=== PATIENT | female | born 1995 | race Caucasian/White ===

== ENCOUNTER 2020-05-08 07:50 | Outpatient (CLI) | payer OTHER, SELFPAY ==
--- NOTE | 2020-05-08 08:01 | US_ITS ---
WS: [id number] EARLY OBSTETRICAL ULTRASOUND (<14 WEEKS). HISTORY: DATING, SUPERVISION NORMAL COMPARISON: None available. Single intrauterine gestational sac is identified. Cardiac activity at 167 BPM. [place]-rump length mounika sures 4.3 cm which corresponds to a gestation of 11w1d. Normal-appearing yolk sac and amnion demonstr ated. Tinysubchorionic hemorrhage.Subchorionic hemorrhage along the posterior gestational sac measure s 6 x 10 x 6 mm. Tiny amount of free fluid in the cul-de-sac. Normal size ovaries with no mass. US/US OB <= 14 weeks fetus [id number] IMPRESSION: 1. Single intrauterine gestation of 11 weeks 1 day with an EDC of 11/26/2020. 2. Tiny subchorionic hemorrhage.
== END 2020-05-08 07:51 | disposition home or self-care (01) ==
PROVIDERS: Visit Provider Family Medicine
DX: Z36.87 Encounter for antenatal screening for uncertain dates (principal); Z3A.11 11 weeks gestation of pregnancy
CPT/HCPCS: 76801

== ENCOUNTER 2020-06-28 14:48 | Outpatient (CLI) | payer OTHER, SELFPAY ==
--- NOTE | 2020-06-28 14:56 | US_ITS ---
WS: [id number] ULTRASOUND OB COMPLETE TECHNIQUE: Complete ultrasound. CLINICAL INFORMATION: NORMAL SUPERVISION ,MULTIPAROUS COMPARISON: Ultrasound May 08, 2020 FINDINGS: Cervix 4.6 cm Single interuterine gestation is identified with breech presentation. Placenta is posterior. Placenta grade 0. Normal amniotic fluid volume. cardiac activity: 150 BPM. AGA: 18w5d ТАТЬЯНА by ultrasound: 11/24/2020 Estimated weight: 257 g BDP: 4.2 cm = 18w4d HC: 15.7 cm = 18w4d AC: 13.3 cm = 18w6d FEMUR LENGTH: 2.9 cm = 18w5d Anatomic survey: Anatomic survey is normal. Normal stomach. Kidneys and bladder are normal. Normal 3 vessel cord. Norm al 3 vessel cord insertion. Normal 4 chamber heart. Normal spine. Intracranial contents are normal. N ormal posterior fossa and cisterna magna. US/US OB >= 14 weeks fetus [id number] IMPRESSION: 1. Single intrauterine with visualized cardiac activity. AGA 18w5d w ith ТАТЬЯНА 11/24/2020. 2. Placenta is posterior No evidence of abruption or previa. presentatio n is breech. 3. anatomic survey is normal. 4. Normal amniotic fluid volume.
== END 2020-06-28 14:49 | disposition home or self-care (01) ==
LOC: RAD 14:53
PROVIDERS: PCP Registered Nurse; Visit Provider Family Medicine
DX: Z34.82 Encounter for supervision of other normal pregnancy, second trimester (principal); Z3A.18 18 weeks gestation of pregnancy
CPT/HCPCS: 76805

== ENCOUNTER 2020-10-13 08:12 | Outpatient (CLI) | payer OTHER, SELFPAY ==
[2020-10-13 08:15] VITALS: BMI 31.1
[2020-10-13 08:34] VITALS: BP 130/71; PULSE 109; TEMP 36.9
[2020-10-13 08:48] VITALS: RESP 17
[2020-10-13 09:00] VITALS: RESP 16
[2020-10-13 09:34] LABS: Add Urine Culture? No; Bacteria Urine TRACE /hpf; Bilirubin Urine Neg (Negative); Blood Urine Neg (Negative); Glucose Urine UA Norm (Normal); Ketones Urine Negative (Negative); Leukocyte Esterase Urine Negative (Negative); Nitrate Urine Negative (Negative); Protein Urine Neg (Negative); Specific Gravity, Urine 1.015 (1.005-1.030); Squamous Epithelial Cell Urine 0-4 /hpf (0-5); Urine Appearance Clear (CLEAR); Urine Color Yellow (Yellow); Urobilinogen Urine Norm (Negative); WBC Urine 0-4 /hpf (0-5); pH Urine 6 (5-7)
== END 2020-10-13 09:10 | disposition home or self-care (01) ==
LOC: OPOB 08:16 → OBGYN 08:17
PROVIDERS: PCP Registered Nurse; Visit Provider Family Medicine
DX: O26.899 Other specified pregnancy related conditions, unspecified trimester (principal); Z3A.00 Weeks of gestation of pregnancy not specified; R30.0 Dysuria
CPT/HCPCS: 59025; 81001; 87086; 99211

== ENCOUNTER 2020-11-17 10:36 | Outpatient (CLI) | payer OTHER, SELFPAY ==
[2020-11-17] VITALS (7 sets, daily range): BP systolic 116–148; BP diastolic 70–86; PULSE 102–125; RESP 16; TEMP 35.6–36; BMI 32.1
== END 2020-11-17 13:41 | disposition home or self-care (01) ==
LOC: OPOB 10:40 → OBGYN 10:41
PROVIDERS: PCP Registered Nurse; Visit Provider Family Medicine
DX: O26.899 Other specified pregnancy related conditions, unspecified trimester (principal); Z3A.00 Weeks of gestation of pregnancy not specified; R10.9 Unspecified abdominal pain
CPT/HCPCS: 59025; 99211

== ENCOUNTER 2020-11-21 13:15 | Inpatient (IN) | payer OTHER, SELFPAY ==
[2020-11-21] VITALS (48 sets, daily range): BP systolic 89–149; BP diastolic 51–87; PULSE 69–118; RESP 17; TEMP 36.3; O2SAT 94–99; BMI 32.5
[2020-11-21 14:02] LABS: Basophils % 0.1 %; Eosinophils % 0.3 %; Hematocrit 34.7 % (37.0-47.0); Lymphocytes # 1.9 10^3/uL (0.8-4.8); Lymphocytes % 16.7 %; Mean Corpuscular HGB Conc 31.7 g/dL (30.0-36.0); Mean Corpuscular Hemoglobin 26.8 pg (28.0-34.0); Mean Corpuscular Volume 84.4 fL (81-99); Mean Platelet Volume 12.4 fL (7.4-10.4); Monocytes % 8.5 %; Neutrophils # 8.39 10^3/uL (1.8-7.7); Neutrophils % 73.8 %; Nucleated Red Blood Cells % 0 %; Platelet Count 211 10^3/cmm (130-400); Red Blood Count 4.11 10^6/uL (4.1-5.3); Red Cell Distribution Width 13.4 % (12.1-15.1); White Blood Count 11.4 10^3/uL (4.0-10.0)
[2020-11-21 14:20] LABS: Alanine Aminotransferase < 5 U/L (0-33); Albumin Level 3.6 g/dL (3.5-5.2); Alkaline Phosphatase 165 IU/L (35-105); Anion Gap 16.7 (5-19); Aspartate Amino Transferase 20 U/L (0-32); Blood Urea Nitrogen 5 mg/dL (6-20); Calcium 9.1 mg/dL (8.5-10.5); Carbon Dioxide 21 mmol/L (22-29); Chloride 100 mmol/L (98-107); Globulin 2.6 g/dL (1.3-4.6); Glomerular Filtration Rate 197.8 mL/min (90-130); Glucose 104 mg/dL (65-115); Osmolality Calculated 276 mOsm/kg (285-295); Potassium 3.7 mmol/L (3.5-5.1); Sodium 134 mmol/L (136-145); Total Bilirubin 0.2 mg/dL (0.15-1.2); Total Protein 6.2 g/dL (6.6-8.7); Uric Acid 4.3 mg/dL (2.4-5.7)
[2020-11-21] MEDS: dextrose 5%-lactated ringers 1,000 ML 125 ML IV (15:13)
[2020-11-21] MEDS: oxytocin 30 UNIT/500 ML BAG IV (15:13)
--- NOTE | 2020-11-21 17:11 | P.HP_ITS ---
Providers/Chief Complaint Primary Care Provider: ILIR Rojas Chief Complaint: INDUCTION History of Present Illness Noah Staley is a 25 year old G2, P1 at 38.6 weeks gestation by LMP consistent with 11-week ultrasound. Her is complicated by UTI in first trimester, Covid positive on 07/03/2020, anemia, gestational hypertension. Patient presented to my office for a follow-up appointment and was found to have elevated blood pressure. Her blood pressures have been elevated off and on in the 140s and she has been having daily headaches for the last 3 days. Tylenol does not seem to be helping them. We discussed the risks and benefits of proceeding with induction of labor to prevent the gestational hypertension for worsening and she agreed to proceed with induction of labor. Currently the patient feels well overall. Her headache is starting to improve. She denies any chest pains, shortness of breath, flashes of light, vaginal bleeding, leakage of fluid, dysuria, nausea, vomiting, diarrhea, constipation. Medications/Allergies Home Medications Medication Instructions Recorded Confirmed Last Taken Type gwqtyqpj-lqo-St-FA 1 tab PO DAILY 10/13/20 11/17/20 11/16/20 History [] iron 325 mg PO DAILY 11/17/20 11/17/20 11/16/20 History Allergies Allergy/AdvReac Type Severity Reaction Status Date / Time No Known Allergies Allergy Verified 11/17/20 10:47 PFSH Acute PFSH: Surgical History (Updated 11/21/20 @ 17:13 by Brenden Grover MD) Hx of breast implants, bilateral Vitals/I&O/Wt Last Vital Signs Pulse 90 11/21/20 17:02 BP 125/76 11/21/20 17:02 11/21/20 11/21/20 11/21/20 06:59 14:59 22:59 Intake Total 7.917 / 7.917 Balance 7.917 / 7.917 Weight last 48 hrs Weight 208 lb Physical Exam Narrative: EXAM NARRATIVE: General: Alert and oriented x3 Eyes: Pupils equal round and reactive to light and accommodation Mouth: Mucous membranes moist, pharynx non-erythematous Cardiac: Regular rate and rhythm without murmurs Lungs: Clear to auscultation bilaterally without wheezes, crackles or rhonchi Abdomen: Soft, non-tender, fundus consistent with gestational age Extremities: Trace edema in the bilateral lower extremities Data : 11/21/20 13:40 11/21/20 13:40 A&P Additional A&P Information The patient is currently feeling well. Her blood pressures are in the 130 systolic currently. We are doing a 24 urine protein to further evaluate for preeclampsia. CBC, CMP and uric acid did not show concerning findings other than mild anemia. The patient has been started on IV Pitocin for induction of labor as she was 3 cm dilated upon presentation. She is currently diony every 2 to 4 minutes. heart tones are showing a category 1 tracing. GBS is negative. Covid is pending. We will proceed with routine induction of labor. All questions were answered. Attestations Medical Necessity Statement*: The patient will be here for greater than 2 midnights due to routine intrapartum and management of labor and delivery. Coding Level of Care Code Acute Engineer [employer] for Karmen Benitez
[2020-11-21] MEDS: lactated ringers 1,000 ML 999 ML IV ×2 (18:18→19:41)
--- NOTE | 2020-11-21 19:47 | ANES.PREANE2 ---
Pre-Anesthetic Assessment Pre-Anesthetic Assessment: Height/Weight: Height 1.7 m Weight 94.347 kg Pulse BP Pulse Ox 78 106/59 94 11/21/20 19:42 11/21/20 19:42 11/21/20 19:42 Preop Diagnosis: IUP Was Beta Araceli taken within 24 hours: N/A Was Clonidine taken within 24 hours: N/A Social: Social History: No alcohol and No tobacco Exam: Pre-Anes Outpt Exam: alert, oriented x 3, clear to auscultation bilaterally and regular rate & rhythm Airway: Submandibular: WNL Cervical ROM: WNL MP: 2 Dentition: Full History/ROS: No significant history except as noted Anesthetic Plan: ASA status: 2 Anesthesia: Regional (specify below) (Labor epidural) Risk of > 500 ml blood loss (7ml/kg in children): No Meds/Allergies Current Medications: Current Medications Generic Name Dose Route Start Last Admin Trade Name Freq PRN Reason Stop Dose Admin Oxytocin 30 unit in 500 ml s @ 1 mls/hr 11/21/20 14:00 11/21/20 18:19 Pitocin IV 20 milliunit/min .Q24H POWER 20 mls/hr Titration Protocol 1 MILLIUNIT/MIN Dextrose/Lactated Ringer's 1,000 mls @ 125 m ls/hr 11/21/20 14:00 11/21/20 19:19 Dextrose 5%-Lact ated Ringers IV 125 mls/hr .Q8H POWER Infusion Ropivacaine 200 mg in 100 mls @ 13 mls/hr 11/21/20 18:00 11/21/20 19:31 Naropin Premix EPIDURAL 13 mls/hr .Q7H42M POWER Administration Lactated Ringer's 1,000 mls @ 999 m ls/hr 11/21/20 17:59 11/21/20 19:41 Lactated Ringers IV 999 mls/hr .Q1H1M PRN Administration See label comment s PFSH Anesthesia PFSH: Surgical History (Updated 11/21/20 @ 17:13 by Brenden Grover MD) Hx of breast implants, bilateral Female Reproductive History: : 2 Data Anesthesia CBC & Chem 7: 11/21/20 13:40 11/21/20 13:40 Other Labs: Laboratory Results - last 48 hr 11/21/20 11/21/20 13:40 13:40 WBC 11.4 H RBC 4.11 Hgb 11.0 L Hct 34.7 L MCV 84.4 MCH 26.8 L MCHC 31.7 RDW 13.4 Plt Count 211 MPV 12.4 H Neut % (Auto) 73.8 Lymph % (Auto) 16.7 [place] % (Auto) 8.5 Eos % (Auto) 0.3 Baso % (Auto) 0.1 Neut # (Auto) 8.39 H Lymph # (Auto) 1.9 [place] # (Auto) 1.0 H Eos # (Auto) 0.0 Baso # (Auto) 0.0 Nucleated RBC % (auto) 0 Nucleated RBCs # 0.0 Sodium 134 L Potassium 3.7 Chloride 100 Carbon Dioxide 21 L Anion Gap 16.7 BUN 5 L Creatinine 0.4 L GFR Calculation 197.8 H Glucose 104 Calculated Osmolality 276 L Uric Acid 4.3 Calcium 9.1 Total Bilirubin 0.2 AST 20 ALT < 5 Alkaline Phosphatase 165 H Total Protein 6.2 L Albumin 3.6 Globulin 2.6 Cardiac Studies: No Data to Display
--- NOTE | 2020-11-21 19:47 | ANES.PROC ---
Anesthesia Procedures Procedure/Date: 11/21/20 Epidural: Time Out Performed: Yes Consents Signed: Procedure Consent Consent: requested by attending/covering physician, from patient, risks and benefits reviewed and patient agrees to proceed Lumbar Level: L3-L4 Epidural position: sitting Epidural procedure: sterile prep of area, 1% lidocaine to numb the area, 18 g needle, test dose given, 1.5% xylocaine 1:200k epi, placed PCEA, no systemic response, sterile dressing applied and 0.2% Ropiavacaine @ mls/hr (13) Additional Comments: VAIBHAV at 5cm, cath at 10cm, LLE paresthesia with passage of cath. Bolused 5mls 2% lido PF.
[2020-11-22] VITALS (36 sets, daily range): BP systolic 97–169; BP diastolic 53–121; PULSE 65–127; RESP 15; TEMP 36.1–37
[2020-11-22] MEDS: dextrose 5%-lactated ringers 1,000 ML 125 ML IV (00:44)
--- NOTE | 2020-11-22 02:03 | PM.DELIVERY ---
Delivery Note: Date of delivery: November 22, 2020 Pre-delivery diagnoses: 1. Intrauterine at 39.0 weeks gestation 2. Gestational hypertension without severe features 3. Anemia 4. COVID-19 infection on 07/03/2020 Post-delivery diagnoses: 1. Intrauterine status post spontaneous vaginal delivery at 39.0 weeks gestation 2. Gestational hypertension without severe features 3. Anemia 4. COVID-19 infection on 07/03/2020 5. Delivery of healthy infant female weighing 7 pounds 13 ounces with Apgars of 9 and 9 Procedure: Spontaneous vaginal delivery Op report anesthesia: Epidural Delivering Physician: Brenden Grover MD Estimated blood loss (mL): 125 Findings: 1. Intact placenta with peripheral umbilical cord insertion site 2. Delivery of healthy infant female weighing 7 pounds 13 ounces with Apgars of 9 and 9 Pre-Delivery Course: The patient was admitted to labor and delivery secondary to gestational hypertension without severe features. The patient was beginning to have regular headaches or not clearing with Tylenol. Her blood pressures were in the 140s systolic. For this reason it was felt best to proceed with induction of labor prior to the hypertension worsening. In OB she was found to be 3 cm dilated upon admission and was started on IV Pitocin in the early afternoon on 11/21/2020. Her blood pressures were in the normal range and she did not need treatment per antihypertensive protocol. The patient made steady change and received a laboring epidural. AROM was performed at 2238 on 11/21/2020. The patient had clear fluid. Steady change continued and the patient was complete by 1:26 AM on 11/22/2020. Delivery: Patient began pushing at 1:36 AM on 11/22/2020. The patient pushed well and the delivered in the OA position at 1:40 AM on 11/22/2020. The right shoulder was the anterior shoulder and it delivered with ease. The rest of the delivered without complication. The infant's mouth and nose were bulb suctioned by myself and the was crying immediately after delivery. The infant was placed on the mother's chest where the nurses were waiting to care for her. The infant's cord was clamped by myself after approximately 1 minute and cut by the infant's father. Cord blood sample was obtained. The cord was then drained of blood. Traction was placed on the umbilical cord and uterine massage was done. The placenta delivered without complication at 1:45 AM on 11/22/2020. The placenta was noted to be intact with a peripheral umbilical insertion site. The cervix was inspected and no lacerations were noted. The vaginal wall was inspected and no lacerations were noted. Currently the mother's bleeding is slowing down well. At this time the mother and infant are doing very well. Coding Level of Care Code Acute Credit Analyst for Karmen Benitez
[2020-11-22] MEDS: miSOPROStol 200 mcg Tablet 800 MCG PR (02:26)
[2020-11-22] MEDS: oxytocin 30 UNIT/500 ML BAG 600 UNIT IV (02:39)
--- NOTE | 2020-11-22 02:43 | PC.NURSE ---
Dr. Grover at nurses station, updated on fundus firm with scant bleeding at this time. MD orders for second bag of Pitocin to be ran in at 600ml/hr for the first 200ml's then run the rest of the bag at 60ml/hr.
[2020-11-22] MEDS: ibuprofen 800 mg tablet PO ×3 (10:09→21:17)
[2020-11-22] MEDS: prenatal vitamin Capsule 1 CAP PO (10:09)
[2020-11-22] MEDS: docusate sodium 100 mg Capsule PO (10:09)
[2020-11-22 14:44] LABS: Coronavirus Test Green County Not Detected
[2020-11-22 15:22] LABS: Hematocrit 30.1 % (37.0-47.0); Hemoglobin 9.3 g/dL (11.5-15.3); Mean Corpuscular HGB Conc 30.9 g/dL (30.0-36.0); Mean Corpuscular Hemoglobin 26.4 pg (28.0-34.0); Mean Corpuscular Volume 85.5 fL (81-99); Mean Platelet Volume 12.1 fL (7.4-10.4); Platelet Count 174 10^3/cmm (130-400); Red Blood Count 3.52 10^6/uL (4.1-5.3); Red Cell Distribution Width 13.8 % (12.1-15.1); White Blood Count 13.3 10^3/uL (4.0-10.0)
[2020-11-23 02:07] VITALS: RESP 17
--- NOTE | 2020-11-23 04:44 | PC.NURSE ---
in nursery under radiant warmer for CCHD testing, pulse ox placed on left foot and a reading of 70's-80's % with a good wave form, infant color was pink with no signs of distress. Second pulse ox was placed on right wrist with a matching reading in the 80's %. Second RN, Nciole Chao, to nursery. Infant still with no signs of distress and infant now reading 99-100%. watched for 10 minutes with readings in high 90's. Dr. Grover called at 0300 and notified of pulse ox readings. states that he will come to unit in the morning to assess patient and redo the CCHD in one hour.
[2020-11-23 05:00] VITALS: TEMP 35.9
[2020-11-23 05:01] VITALS: BP 103/62; PULSE 72
--- NOTE | 2020-11-23 08:38 | PM.DCS ---
Discharge Providers Date of Admission: 11/21/20 13:15 Date of Discharge: November 23, 2020 Attending Provider at Admission: Brenden Grover MD Attending Provider at Discharge: Brenden Grover MD Primary Care Provider: ILIR Rojas Diagnoses at Discharge Other Information Additional DC diagnoses/information: 1. Intrauterine status post spontaneous vaginal delivery at 39.0 weeks gestation 2. Gestational hypertension without severe features 3. Anemia 4. COVID-19 infection on 07/03/2020 5. Delivery of healthy female weighing 7 pounds 13 ounces with Apgars of 9 and 9 Reason for Visit Reason for Visit: INDUCTION Hospital Course Hospital Course Pre-Delivery Course: The patient was admitted to labor and delivery secondary to gestational hypertension without severe features. The patient was beginning to have regular headaches or not clearing with Tylenol. Her blood pressures were in the 140s systolic. For this reason it was felt best to proceed with induction of labor prior to the hypertension worsening. In OB she was found to be 3 cm dilated upon admission and was started on IV Pitocin in the early afternoon on 11/21/2020. Her blood pressures were in the normal range and she did not need treatment per antihypertensive protocol. The patient made steady change and received a laboring epidural. AROM was performed at 2238 on 11/21/2020. The patient had clear fluid. Steady change continued and the patient was complete by 1:26 AM on 11/22/2020. Delivery: The patient began pushing at 1:36 AM on 11/22/2020. The patient pushed well and the infant delivered in the OA position at 1:40 AM on 11/22/2020. The right shoulder was the anterior shoulder and it delivered with ease. The rest of the infant delivered without complication. The infant's mouth and nose were bulb suctioned by myself and the infant was crying immediately after delivery. The was placed on the mother's chest where the nurses were waiting to care for her. The 's cord was clamped by myself after approximately 1 minute and cut by the 's father. Cord blood sample was obtained. The cord was then drained of blood. Traction was placed on the umbilical cord and uterine massage was done. The placenta delivered without complication at 1:45 AM on 11/22/2020. The placenta was noted to be intact with a peripheral umbilical insertion site. The cervix was inspected and no lacerations were noted. The vaginal wall was inspected and no lacerations were noted. Post-delivery course: The patient has done very well postartum. She has had little bleeding, her pain is well controlled, she is ambulating, voiding, passing gas and tolerating food by mouth. Routine post-delivery instructions were discussed. All questions answered. The patient is in agreement with discharge home at this time. Physical Exam Narrative: EXAM NARRATIVE: General: Alert and oriented x3 Eyes: Pupils equal round and reactive to light and accommodation Mouth: Mucous membranes moist, pharynx non-erythematous Cardiac: Regular rate and rhythm without murmurs Lungs: Clear to auscultation bilaterally without wheezes, crackles or rhonchi Abdomen: Soft, non-tender, fundus is firm and 2cm below the umbilicus Extremities: Trace edema in the bilateral lower extremities Urinary Catheter Management^: Glynn: Cath Placed During This Visit: yes Reason for Continuing Indwelling Catheter: Required Immobilization for Trauma or Surgery or Anesthesia Urinary Catheter Date of Insertion: 11/21/20 Urinary Catheter Time of Insertion: 20:16 Discharge Data Data Completed and Pending: Labs from last 24 hours 11/22/20 11/21/20 14:45 15:55 WBC 13.3 H RBC 3.52 L Hgb 9.3 L Hct 30.1 L MCV 85.5 MCH 26.4 L MCHC 30.9 RDW 13.8 Plt Count 174 MPV 12.1 H Nasal/Oral COVID-1 9 PCR Not detected Vitals: Last Vital Signs Temp 96.6 F L 11/23/20 05:00 Pulse 72 11/23/20 05:01 Resp 17 11/23/20 02:07 BP 103/62 11/23/20 05:01 Pulse Ox 97 11/21/20 20:15 Discharge Plan Discharge Patient Disposition: Home Condition: Good Prescriptions: New ibuprofen 800 mg Tablet 800 mg PO TID Qty: 60 RF: 0 Continued [id number]-[id number]-Ax-FA 1 mg Tablet 1 tab PO DAILY RF: 0 Changed iron 325 mg (65 mg iron) Tablet 325 mg PO BIDWMEAL Qty: 60 RF: 0 Discharge Orders: Discharge Order (Routine); Ordered 11/23/20 Ordered By: Brenden Grover Referrals: Brenden Grover MD [Physician] - 6 Weeks (Call on wednesday to schedule a 6 week post- appointment.) Discharge Diet: Advance as tolerated Discharge Activity: Increase activity as tolerated Patient Instructions: Vitamins (By mouth), Pre-eclampsia and Eclampsia (DC), Bleeding (DC), OB Discharge Report, OB Food/Drug Interaction Guide, OB Proud Parent Packet, OB Vaginal Deliveries Activity Restrictions/Additional Instructions: Nothing per vagina for 6 weeks. For any concerns prior to your appointment, please call Dr. Grover for a sooner appointment. Discharge Attestations Time Spent in Discharge Care*: greater than 30 min Quality Metrics Clinical Quality Measures During this hospital stay, did patient experience: None Coding Level of Care Code Acute Chg FW DC note
[2020-11-23] MEDS: ibuprofen 800 mg tablet PO (09:04)
[2020-11-23] MEDS: prenatal vitamin Capsule 1 CAP PO (09:04)
[2020-11-23] MEDS: docusate sodium 100 mg Capsule PO (09:05)
[2020-11-23 09:27] VITALS: BP 117/64; PULSE 82; TEMP 35.9
[2020-11-23 09:30] VITALS: RESP 18
[2020-11-23 10:00] VITALS: BP 117/64; PULSE 82; RESP 18; TEMP 35.9
== END 2020-11-23 10:00 | disposition home or self-care (01) | DRG 807 ==
LOC: OPOB 13:19 → OBGYN 11-22 01:52
PROVIDERS: Admitting Provider Family Medicine; PCP Registered Nurse; Visit Provider Family Medicine
DX: O13.4 Gestational [pregnancy-induced] hypertension without significant proteinuria, complicating childbirth (principal); Z37.0 Single live birth; O99.02 Anemia complicating childbirth; D64.9 Anemia, unspecified; Z86.16 Personal history of COVID-19; Z3A.39 39 weeks gestation of pregnancy
CPT/HCPCS: 36415; 51702; 59409; 80053; 84550; 85025; 85027; 87635; J2795

== ENCOUNTER → 2023-10-19 09:46 | Outpatient (BNVA) | payer SELFPAY | PROVIDERS: PCP Registered Nurse; Visit Provider Registered Nurse | DX: N39.0 Urinary tract infection, site not specified (principal) | CPT/HCPCS: 81000 ==

== ENCOUNTER → 2023-10-27 08:10 | Outpatient (BNVA) | payer SELFPAY | PROVIDERS: PCP Registered Nurse; Visit Provider Registered Nurse | DX: N94.9 Unspecified condition associated with female genital organs and menstrual cycle (principal) | CPT/HCPCS: 81000; 87070; 87205 ==

== ENCOUNTER → 2023-10-28 13:03 | Outpatient (BNVA) | payer SELFPAY | PROVIDERS: PCP Registered Nurse; Visit Provider Family Medicine | DX: Z34.90 Encounter for supervision of normal pregnancy, unspecified, unspecified trimester (principal); R30.0 Dysuria; Z3A.00 Weeks of gestation of pregnancy not specified | CPT/HCPCS: 80307; 81000; 81025; 84144; 84443; 84702; 85025; 86592; 86762; 86803; 86850; 86900; 87077; 87086; 87184; 87340; 87491; 87591; 87624; 87806 ==

== ENCOUNTER 2023-11-05 16:02 | Outpatient (CLI) | payer SELFPAY ==
--- NOTE | 2023-11-05 16:15 | USR_ITS ---
PROCEDURE INFORMATION: Exam: US First Trimester, Transabdominal Exam date and time: 11/05/2023 4:13 PM Age: 28 years old Clinical indication: Screening exam; Routine US, uterus; Additional info: Dating US, in the next 1-2 weeks if possible LABS AND CLINICAL REPORTS: Last menstrual period start date: 08/24/2023 Gestational age (Established): 10 w 3 d Estimated due date (Established): 05/30/2024 TECHNIQUE: Imaging protocol: Real-time transabdominal obstetrical ultrasound of the maternal pelvis and a first trimester , less than 14 weeks 0 days, with image documentation. COMPARISON: US OB >= 14 weeks fetus [id number] 06/28/2020 3:23 PM FINDINGS: GESTATION: Gestation: Single live intrauterine gestation is seen. Embryonic/ heart rate: 165 bpm. Extra-embryonic membranes/Placenta: Unremarkable. No subchorionic bleed. Amniotic fluid: Amniotic and extra-amniotic fluid are normal for gestational age. BIOMETRY: Gestational age (AUA): 9 weeks 0 days by crown-rump length. [place]-Rump length: [place]-rump length is 2.24 cm. This is consistent with a gestational age of 9 weeks 0 days. ТАТЬЯНА by ultrasound is 06/09/2024. MATERNAL: Uterus: Sagittal uterine trace 13.9 cm x 5.3 cm x 6.6 cm. Cervix: Unremarkable. Right ovary/adnexa: Right ovary not visualized. No significant adnexal abnormality is seen. Left ovary/adnexa: Left ovary measures 2.3 x 2 x 0.8 cm with small rounded hypoechoic focus 0.9 x 1.4 x 0.7 cm that could represent small corpus luteal cyst. Left ovarian flow is seen. Intraperitoneal space: No free fluid is seen within the cul-de-sac. US/US OB <= 14 weeks fetus [id number] IMPRESSION: 1. Single live intrauterine of 9 weeks 0 days by crown-rump length. 2. Probable small left ovarian corpus luteal cyst. 3. Right ovary not visualized. 4. No significant abnormality otherwise.
== END 2023-11-05 16:03 | disposition home or self-care (01) ==
LOC: RAD 16:02
PROVIDERS: PCP Registered Nurse; Visit Provider Family Medicine
DX: Z34.81 Encounter for supervision of other normal pregnancy, first trimester (principal)
CPT/HCPCS: 76801

== ENCOUNTER 2023-11-18 22:30 | Emergency (ER) | payer SELFPAY ==
[2023-11-18 22:34] VITALS: BP 101/64; PULSE 79; RESP 18; TEMP 36.6; O2SAT 98
--- NOTE | 2023-11-18 22:44 | USR_ITS ---
PROCEDURE INFORMATION: Exam: US First Trimester, Transabdominal and US , Transvaginal Exam date and time: 11/18/2023 11:43 PM Age: 28 years old Clinical indication: complicated by abdominal or pelvic pain; Lower; First trimester (<14 weeks 0 days); Gestational age or lmp: 10w 6d by lmp; ; Patient HX: G3-p2-a0-l2 presenting with bilateral pelvic cramping a spotting x 4 hours. ; Additional info: Vaginal bleeding, cramping LABS AND CLINICAL REPORTS: Choriogonadotropin in serum (Serum HCG): 36384 mIU/mL Last menstrual period start date: 09/02/2023 Gestational age (Established): 10 w 6 d Estimated due date (Established): 06/09/2024 TECHNIQUE: Imaging protocol: Real-time transabdominal obstetrical ultrasound of the maternal pelvis and a first trimester , less than 14 weeks 0 days, with image documentation. Transvaginal imaging was used for better evaluation of the fetus, adnexa, and/or cervix. COMPARISON: US OB <= 14 weeks fetus [id number] 11/05/2023 4:13 PM FINDINGS: Gestation: Intrauterine gestation is visualized. pole is visualized. No yolk sac is visualized. Embryonic/ heart rate: 178 bpm Extra-embryonic membranes/Placenta: Unremarkable. No subchorionic bleed. Amniotic fluid: Amniotic fluid and extra-amniotic fluid is normal for gestational age. BIOMETRY: Gestational age (AUA): 11 w 2 d Estimated due date (AUA): 06/06/2014 [place]-Rump length (CRL): 4.5 mm. EGA (CRL) is 11 w 2 d MATERNAL: Uterus: Uterus measures 11.74 cm x 8.61 cm x 6.86 cm. Cervix: Unremarkable. Right ovary/adnexa: Right ovary measures 2.5 cm x 2.2 cm x 2 cm. Right ovarian volume is 5.7 mL. Left ovary/adnexa: Left ovary measures 3.4 cm x 3 cm x 1.9 cm. Left ovarian volume is 10.2 mL. Intraperitoneal space: No intraperitoneal free fluid. US/US OB <= 14 weeks fetus [id number] IMPRESSION: 1. Single living intrauterine measuring 11 weeks 1 day by today's ultrasound. 2. No evidence placental abru the ption. 3. The ovaries image normally.
[2023-11-18 22:56] LABS: Basophils % 0.2 %; Eosinophils # 0.1 10^3/uL (0.0-0.8); Eosinophils % 1.2 %; Hematocrit 36.8 % (36-47); Lymphocytes # 2.9 10^3/uL (0.8-4.8); Lymphocytes % 25.6 %; Mean Corpuscular HGB Conc 33.7 g/dL (30-55); Mean Corpuscular Hemoglobin 30.4 pg (27-33); Mean Corpuscular Volume 90.2 fl (85-98); Mean Platelet Volume 9.8 fL (7.4-10.4); Monocytes # 0.9 10^3/uL (0.2-0.9); Monocytes % 7.9 %; Neutrophils # 7.27 10^3/uL (1.8-7.7); Neutrophils % 64.8 %; Nucleated Red Blood Cells % 0 %; Platelet Count 240 10^3/cmm (157-399); Red Blood Count 4.08 10^6/uL (3.85-5.65); Red Cell Distribution Width 11.9 % (12.1-15.1); White Blood Count 11.23 10^3/uL (3.29-11.43)
--- NOTE | 2023-11-18 23:07 | ED_ITS ---
HPI - 2 General: Chief complaint: Vaginal Bleeding Stated complaint: 12 weeks preg bleeding, Cramping Time Seen by Provider: 11/18/23 22:39 History of Present Illness: 28-year-old female comes in today for va ginal bleeding. Patient reports that she was in bed sleeping when she felt sudden onset of bleeding. Patient states that she is about 12 weeks . Patient reports some cramping with this. Patient denies any routine medications. Patient has no chronic medical problems. Patient's DIRECTOR OF MEDICAL EDUCATION is Dr. Grover. Patient had a normal ultrasound approximately 2 weeks ago. Patient denies any fever. Patient does have some nausea. 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 Female Reproductive History: Date of last menstrual period: 08/23/23 G ravida: 4 Physical Exam 2 Const: COMMON NORMALS: alert HENMT: COMMON NORMALS: normocephalic HEAD & SCALP: normocephalic Neck/C-Spine: COMMON NORMALS: full ROM Resp: COMMON NORMALS: normal respiratory effort Cardio: COMMON NORMALS: regular rate RATE: regular rate GI: COMMON NORMALS: non-tender Back/Pelvis: COMMON NORMALS: thoracic and lumbar spine normal to inspection Extremity: COMMON NORMALS: normal to inspection Neuro: SENSORIUM/ORIENTATION: Yes alert Skin: COMMON NORMALS: turgor normal GENERAL SKIN EXAM: turgor normal Course 2 Vital Signs: Vital signs: Vital Signs Temperature 97.9 F 11/18/23 22:34 Pulse Rate 78 11/19/23 00:37 Respiratory Rate 16 11/19/23 00:37 Blood Pressure 98/42 11/19/23 00:37 Pulse Oximetry 97 11/19/23 00:37 Oxygen Delivery Me thod Room Air 11/19/23 00:37 MDM - OB/Uterine Contractions Medical Decision Making 28-year-old female comes in today for complaints of vaginal bleeding. Patient reports going through 1 pad. Patient has noticed some clots. Patient appears nontoxic. Patient appears in no pain. Abdomen soft. Bowel sounds are present. Vital signs are normal. Differential diagnosis includes threatened , placenta previa, subchorionic hemorrhage. Ultrasound of the pelvis noted a single live intrauterine around 11 weeks 1 to 2 days. No evidence of placental abruption or subchorionic hemorrhage was noted at this time. Patient's blood count showed no anemia. CMP was unremarkable. Urinalysis had blood in it. Reviewed exam with patient with recommendations for follow-up with Dr. Grover in the morning. Return to ER for worsening symptoms. Patient reported understanding. Lab Data 11/18/23 22:48 11/18/23 22:48 Radiology Impressions Ultrasound 11/18/23 22:44 IMPRESSION: 1. Single living intrauterine measuring 11 weeks 1 day by today's ultrasound. 2. No evidence placental abru the ption. 3. The ovaries image normally. Laboratory Results WBC 11.23 10^3/uL (3.29-11.43) 11/18/23 22:48 RBC 4.08 10^6/uL (3.85-5.65) 11/18/23 22:48 Hgb 12.40 g/dL (11.27-16.99) 11/18/23 22:48 Hct 36.8 % (36-47) 11/18/23 22:48 MCV 90.2 fl (85-98) 11/18/23 22:48 MCH 30.4 pg (27-33) 11/18/23 22:48 MCHC 33.7 g/dL (30-55) 11/18/23 22:48 RDW 11.9 % (12.1-15.1) L 11/18/23 22:48 Plt Count 240 10^3/cmm (157-399) 11/18/23 22:48 MPV 9.8 fL (7.4-10.4) 11/18/23 22:48 Neut % (Auto) 64.8 % 11/18/23 22:48 Lymph % (Auto) 25.6 % 11/18/23 22:48 [place] % (Auto) 7.9 % 11/18/23 22:48 Eos % (Auto) 1.2 % 11/18/23 22:48 Baso % (Auto) 0.2 % 11/18/23 22:48 Neut # (Auto) 7.27 10^3/uL (1.8-7.7) 11/18/23 22:48 Lymph # (Auto) 2.9 10^3/uL (0.8-4.8) 11/18/23 22:48 [place] # (Auto) 0.9 10^3/uL (0.2-0.9) 11/18/23 22:48 Eos # (Auto) 0.1 10^3/uL (0.0-0.8) 11/18/23 22:48 Baso # (Auto) 0.0 10^3/uL (0.0-0.1) 11/18/23 22:48 Nucleated RBC % (auto) 0 % 11/18/23 22:48 Nucleated RBCs # 0.0 /100WBC 11/18/23 22:48 Sodium 134 mmol/L (136-145) L 11/18/23 22:48 Potassium 3.8 mmol/L (3.5-5.1) 11/18/23 22:48 Chloride 101 mmol/L (98-107) 11/18/23 22:48 Carbon Dioxide 25 mmol/L (22-29) 11/18/23 22:48 Anion Gap 11.8 (5-19) 11/18/23 22:48 BUN 8 mg/dL (6-20) 11/18/23 22:48 Creatinine 0.5 mg/dL (0.5-0.9) 11/18/23 22:48 GFR Calculation 149.1 mL/min (90-130) H 11/18/23 22:48 Glucose 116 mg/dL (65-115) H 11/18/23 22:48 Calculated Osmolality 277 mOsm/kg (285-295) L 11/18/23 22:48 Calcium 9.0 mg/dL (8.5-10.5) 11/18/23 22:48 Total Bilirubin 0.2 mg/dL (0.15-1.2) 11/18/23 22:48 AST 14 U/L (0-32) 11/18/23 22:48 ALT 11 U/L (0-33) 11/18/23 22:48 Alkaline Phosphatase 85 U/L (35-105) 11/18/23 22:48 Total Protein 7.0 g/dL (6.6-8.7) 11/18/23 22:48 Albumin 4.1 g/dL (3.5-5.2) 11/18/23 22:48 Globulin 2.9 g/dL (1.3-4.6) 11/18/23 22:48 Ser , Semi-Qnt 35809.00 mIU/mL 11/18/23 22:48 Urine Color Yellow (Yellow) 11/18/23 22:50 Urine Appearance Turbid (CLEAR) A 11/18/23 22:50 Urine pH 7 (5-7) 11/18/23 22:50 Ur Specific [place] 1.015 (1.005-1.030) 11/18/23 22:50 Urine Protein 1+ (Negative) H 11/18/23 22:50 Urine Glucose (UA) Norm (Normal) 11/18/23 22:50 Urine Ketones Negative (Negative) 11/18/23 22:50 Urine Blood 3+ (Negative) H 11/18/23 22:50 Urine Nitrate Negative (Negative) 11/18/23 22:50 Urine Bilirubin Neg (Negative) 11/18/23 22:50 Urine Urobilinogen 1 mg/dL (Negative) H 11/18/23 22:50 Ur Leukocyte Esterase Negative (Negative) 11/18/23 22:50 Urine RBC 80-100 /hpf (0-2) H 11/18/23 22:50 Urine WBC 0-4 /hpf (0-5) H 11/18/23 22:50 Ur Squamous Epith Cells 0-4 /hpf (0-5) H 11/18/23 22:50 Ur Transition Epith Cell 0-4 /hpf 11/18/23 22:50 Amorphous Sediment Not Reportable 11/18/23 22:50 Urine Bacteria 1+ /hpf (NONE) H 11/18/23 22:50 Urine Mucus 3+ /hpf 11/18/23 22:50 All radiology interpretation(s) finalized by discharge Discharge Plan Discharge Patient Disposition: Home Clinical Impression: Vaginal bleeding in Condition: Stable Prescriptions: No Action One-A-Day -1 27 mg iron- 800 mcg-235 mg capsule PO doxylamine succinate 25 mg tablet See Rx Instructions .Route .COMPLEX PRN (Reason: allergy symptoms) Qty: 30 6RF Rx Instructions: Take 1 tab by mouth each evening and 1/2 tab in the am as needed for nausea PRN; pyridoxine (vitamin B6) 100 mg tablet 100 mg PO BID PRN (Reason: Nausea) Qty: 60 3RF nystatin 100,000 unit/gram cream 1 applic topical TID 7 Days Qty: 30 0RF amoxicillin-pot clavulanate 875-125 mg tablet 1 tab PO BID Qty: 14 0RF Discharge Orders: Discharge ED (Routine); Ordered 11/19/23 Ordered By: Jimime Coleman Referrals: Brenden Grover MD [Primary Care Provider] - Discharge Diet: Usual diet Discharge Activity: Increase activity as tolerated Patient Instructions: Threatened Miscarriage (ED) Activity Restrictions/Additional Instructions: Drink plenty water and fluids. Pelvic rest. Follow-up with Dr. Grover's office in the morning. Return to ED for worsening symptoms such as bleeding more than 1 pad an hour. Feeling like you are going to pass out. Or fever greater than 100.4. Coding Level of Care Code ED Hand Spinner for Karmen Benitez
[2023-11-18 23:08] LABS: Add Urine Microscopic? YES; Bilirubin Urine Neg (Negative); Blood Urine 3+ (Negative); Glucose Urine UA Norm (Normal); Ketones Urine Negative (Negative); Leukocyte Esterase Urine Negative (Negative); Nitrate Urine Negative (Negative); Protein Urine 1+ (Negative); RBC Urine 80-100 /hpf (0-2); Specific Gravity, Urine 1.015 (1.005-1.030); Urine Appearance Turbid (CLEAR); Urine Color Yellow (Yellow); Urobilinogen Urine 1 mg/dL (Negative); pH Urine 7 (5-7)
[2023-11-18 23:09] LABS: Add Urine Culture? Yes; Bacteria Urine 1+ /hpf; Mucus Urine 3+ /hpf; Squamous Epithelial Cell Urine 0-4 /hpf (0-5); Transitional Epi Cells Urine 0-4 /hpf; WBC Urine 0-4 /hpf (0-5)
[2023-11-18 23:11] LABS: Alanine Aminotransferase 11 U/L (0-33); Albumin Level 4.1 g/dL (3.5-5.2); Alkaline Phosphatase 85 U/L (35-105); Anion Gap 11.8 (5-19); Aspartate Amino Transferase 14 U/L (0-32); Blood Urea Nitrogen 8 mg/dL (6-20); Carbon Dioxide 25 mmol/L (22-29); Chloride 101 mmol/L (98-107); Creatinine Clr Calc Pharmacy 184.9487; Globulin 2.9 g/dL (1.3-4.6); Glomerular Filtration Rate 149.1 mL/min (90-130); Glucose 116 mg/dL (65-115); Osmolality Calculated 277 mOsm/kg (285-295); Potassium 3.8 mmol/L (3.5-5.1); Sodium 134 mmol/L (136-145); Total Bilirubin 0.2 mg/dL (0.15-1.2)
[2023-11-19 00:37] VITALS: BP 98/42; PULSE 78; RESP 16; O2SAT 97
[2023-11-19 01:28] VITALS: BP 111/64; PULSE 76; RESP 14; O2SAT 97
== END 2023-11-19 01:31 | disposition home or self-care (01) ==
PROVIDERS: Emergency Provider Nurse Practitioner Family; PCP Family Medicine
DX: O20.9 Hemorrhage in early pregnancy, unspecified (principal); Z3A.12 12 weeks gestation of pregnancy
CPT/HCPCS: 76801; 80053; 81001; 84702; 85025; 87086; 99284

== ENCOUNTER → 2023-12-30 14:16 | Outpatient (BNVA) | payer SELFPAY | PROVIDERS: PCP Family Medicine; Visit Provider Family Medicine | DX: Z34.80 Encounter for supervision of other normal pregnancy, unspecified trimester (principal); Z3A.00 Weeks of gestation of pregnancy not specified | CPT/HCPCS: 81511 ==

== ENCOUNTER 2024-01-28 14:13 | Outpatient (CLI) | payer SELFPAY ==
--- NOTE | 2024-01-28 14:15 | USR_ITS ---
PROCEDURE INFORMATION: Exam: US After First Trimester, Transabdominal Exam date and time: 01/28/2024 2:27 PM Age: 29 years old Clinical indication: Screening exam; Routine US, uterus; Additional info: Anatomy US - 7-8 weeks from now TECHNIQUE: Imaging protocol: Real-time transabdominal obstetrical ultrasound of the maternal pelvis and a second or third trimester with image documentation. COMPARISON: US OB <= 14 weeks fetus [id number] 11/18/2023 11:43 PM FINDINGS: Gestation: Intrauterine gestation. heart rate: 157 bpm presentation and position: Vertex lie. Placenta: Anterior placenta. No previa. Amniotic fluid (Qualitative): Amniotic fluid is normal for gestational age. ANATOMY: midline falx: Normal cerebellum: Normal lateral ventricles: Normal cisterna magna: Normal choroid plexus: Normal face: Upper lip is normal heart four-chamber view, heart size and position: Normal heart right ventricular outflow tract: Normal heart left ventricular outflow tract: Normal kidneys: Normal stomach: Normal urinary bladder: Normal spine: Normal Umbilical cord and insertion: Normal upper limbs: Normal lower limbs: Normal external genitalia: Normal BIOMETRY: Gestational age (AUA): 21 weeks 1 day Estimated due date (AUA): 06/08/2024 Biparietal diameter (BPD): 5.17 cm. EGA (BPD) is 21 w 5 d. 84.1 % percentile Head circumference (HC): 18.62 cm. EGA (HC) is 21 w 0 d. 52 % percentile Femur length (FL): 3.55 cm. EGA (FL) is 21 w 2 d. 59.7 % percentile FL/HC: 19.07. (Normal range: 16.26 - 20.29) FL/BPD: 68.67 MATERNAL: Uterus: Unremarkable. Cervix: Cervical length measures 4.4 cm. Right ovary/adnexa: Obscured by lack of adequate acoustic window. Left ovary/adnexa: Obscured by lack of adequate acoustic window. Intraperitoneal space: No intraperitoneal free fluid. US/US OB >= 14 weeks fetus [id number] IMPRESSION: Live intrauterine gestation. Normal structural survey.
== END 2024-01-28 14:14 | disposition home or self-care (01) ==
LOC: RAD 14:13
PROVIDERS: PCP Family Medicine; Visit Provider Family Medicine
DX: Z34.80 Encounter for supervision of other normal pregnancy, unspecified trimester (principal); Z3A.21 21 weeks gestation of pregnancy
CPT/HCPCS: 76805

== ENCOUNTER → 2024-02-25 11:08 | Outpatient (BNVA) | payer SELFPAY | PROVIDERS: PCP Family Medicine; Visit Provider Family Medicine | DX: Z34.80 Encounter for supervision of other normal pregnancy, unspecified trimester (principal); Z3A.00 Weeks of gestation of pregnancy not specified | CPT/HCPCS: 82950 ==

== ENCOUNTER → 2024-04-07 11:47 | Outpatient (BNVA) | payer BC, SELFPAY | PROVIDERS: PCP Family Medicine; Visit Provider Family Medicine | DX: Z34.80 Encounter for supervision of other normal pregnancy, unspecified trimester (principal); Z3A.00 Weeks of gestation of pregnancy not specified; Z51.81 Encounter for therapeutic drug level monitoring | CPT/HCPCS: 85025 ==

== ENCOUNTER → 2024-04-25 13:05 | Outpatient (BNVA) | payer BC, SELFPAY | PROVIDERS: PCP Family Medicine; Visit Provider Family Medicine | DX: O26.899 Other specified pregnancy related conditions, unspecified trimester (principal); R30.0 Dysuria; Z3A.00 Weeks of gestation of pregnancy not specified | CPT/HCPCS: 81000; 87086 ==

== ENCOUNTER → 2024-05-16 12:02 | Outpatient (BNVA) | payer BC, SELFPAY | PROVIDERS: PCP Family Medicine; Visit Provider Family Medicine | DX: Z34.90 Encounter for supervision of normal pregnancy, unspecified, unspecified trimester (principal); Z3A.00 Weeks of gestation of pregnancy not specified | CPT/HCPCS: 87081 ==

== ENCOUNTER 2024-06-02 07:00 | Inpatient (IN) | payer BC, SELFPAY ==
[2024-06-02] VITALS (59 sets, daily range): BP systolic 99–136; BP diastolic 54–83; PULSE 61–143; RESP 16–17; TEMP 36.6–36.7; O2SAT 98–100; BMI 31.8
--- NOTE | 2024-06-02 07:06 | P.HP_ITS ---
Providers/Chief Complaint 2 Primary Care Provider: Brenden Grover MD Chief Complaint: induction of labor History of Present Illness Noah Staley is a 29 year old @ 39.0 wks by 9 wk US inconsistent with LMP. Preg c/b h/o gHTN, 1st TM bleeding, UTI in 1st TM. The patient presented to labor and delivery for a scheduled elective induction of labor. She has been feeling well. She has not had any leaking fluid, vaginal bleeding, nausea, vomiting, diarrhea, constipation, dysuria, cough, chest pains, fever. 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 Female Reproductive History: : 3 Vitals/I&O/Wt Last Vital Signs Pulse 96 06/02/24 06:53 BP 136/68 06/02/24 06:53 O2 Del Method Room Air 06/02/24 06:40 Weight last 48 hrs Weight 203 lb Physical Exam 2 Narrative: General: Alert and oriented x3 Eyes: Pupils equal round and reactive to light and accommodation Mouth: Mucous membranes moist, pharynx non-erythematous Cardiac: Regular rate and rhythm without murmurs Lungs: Clear to auscultation bilaterally without wheezes, crackles or rhonchi Abdomen: Soft, non-tender, fundus consistent with gestational age Extremities: Trace edema in the bilateral lower extremities Data 06/02/24 07:29 A&P Assessment and plan (1) Supervision of normal intrauterine in multigravida: The patient is doing well at this time. heart tones are in the mid 130s with moderate variability good accelerations and a category 1 tracing. She is not diony. She is 4 to 5 cm upon admission. We will start IV Pitocin for induction of labor. She is GBS negative. She may receive a laboring epidural when she desires. Routine intrapartum management discussed. All questions were answered. The patient and her are in agreement with current plan of care. Attestations 2 Medical Necessity Statement*: The patient will be here for greater than 2 midnights due to routine intrapartum and management of labor and delivery. Coding Level of Care Code Acute Code for Chg Fwd Diagnoses Supervision of normal intrauterine in multigravida Z34.80
[2024-06-02 07:44] LABS: Basophils % 0.2 %; Eosinophils % 0.3 %; Lymphocytes # 1.9 10^3/uL (0.8-4.8); Lymphocytes % 15.8 %; Mean Corpuscular HGB Conc 33.1 g/dL (30-55); Mean Corpuscular Hemoglobin 29.6 pg (27-33); Mean Corpuscular Volume 89.4 fl (85-98); Mean Platelet Volume 11.3 fL (7.4-10.4); Monocytes # 0.9 10^3/uL (0.2-0.9); Monocytes % 7.7 %; Neutrophils # 8.94 10^3/uL (1.8-7.7); Neutrophils % 75.2 %; Nucleated Red Blood Cells % 0 %; Platelet Count 187 10^3/cmm (157-399); Red Blood Count 4.36 10^6/uL (3.85-5.65); Red Cell Distribution Width 11.9 % (12.1-15.1); White Blood Count 11.87 10^3/uL (3.29-11.43)
[2024-06-02] MEDS: lactated ringers 1,000 ML 999 ML IV (08:00)
[2024-06-02] MEDS: oxytocin 30 UNIT/500 ML BAG IV (08:30)
[2024-06-02] MEDS: ROPivacaine syringe 100 MG/50 ML SYRINGE 10 MG EPIDURAL ×2 (09:09→14:10)
[2024-06-02] MEDS: dextrose 5%-lactated ringers 1,000 ML 125 ML IV (09:10)
--- NOTE | 2024-06-02 09:13 | P.ANESASSM_ITS ---
Pre-Anesthetic Assessment Height/Weight: Height 1.7 m Weight 92.079 kg Pulse BP Pulse Ox O2 Del Method 93 132/78 99 Room Air 06/02/24 09:09 06/02/24 09:09 06/02/24 09:03 06/02/24 07:44 Epidural Familial anesthetic complications: None Was Beta Araceli taken within 24 hours: N/A Was Clonidine taken within 24 hours: N/A Social No alcohol and No tobacco Exam alert, oriented x 3, clear to auscultation bilaterally and regular rate & rhythm Anesthetic Plan ASA status: 2 Anesthesia: Regional (specify below) Risk of > 500 ml blood loss (7ml/kg in children): Yes, adequate IV access and fluids planned Medications/Allergies Home Medications Medication Instructions Recorded Confirmed Last Taken Type vit 168-iron 27 mg-folic cap PO 10/28/23 05/29/24 Unknown History acid 800 mcg-omega3 235 mg capsule (One-A-Day -1) Allergies Allergy/AdvReac Type Severity Reaction Status Date / Time No Known Allergies Allergy Verified 10/27/23 08:04 [facility] Anesthesia Surgical History Hx of breast implants, bilateral Social History Smoking and tobacco/nicotine status: never used tobacco/nicotine Alcohol intake: never Substance/Drug Use: never 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
--- NOTE | 2024-06-02 09:14 | ANES.PROC ---
Anesthesia Procedures Procedure/Date: 06/02/24 Epidural: Time Out Performed: Yes Consents Signed: Procedure Consent and NPO Consent Consent: requested by attending/covering physician, from patient, from other, risks and benefits reviewed and patient agrees to proceed Lumbar Level: L3-L4 Epidural position: sitting Epidural procedure: sterile prep of area, 1% lidocaine to numb the area, 18 g needle, negative for paresthesia passed, neg for paresthesia, test dose given, 1.5% xylocaine 1:200k epi (5 cc), 0.2% Ropivacaine bolus ml, placed PCEA, no systemic response, sterile dressing applied, L.U.D. no apparent complications and 0.2% Ropiavacaine @ mls/hr (10) Additional Comments: VAIBHAV at 5.5 cm, threaded to 11.5 cm
--- NOTE | 2024-06-02 15:27 | PM.DELIVERY ---
Delivery Note: Date of delivery: June 02, 2024 Pre-delivery diagnoses: 1. Intrauterine at 39.0 weeks gestation 2. History of gestational hypertension 3. First trimester bleeding 4. UTI in first trimester Post-delivery diagnoses: 1. Intrauterine status post spontaneous vaginal delivery at 39.0 weeks gestation 2. History of gestational hypertension 3. First trimester bleeding 4. UTI in first trimester 5. Delivery of healthy infant male weighing 8 pounds 8 ounces with Apgars of 8 and 9 Pre-Delivery Course: Noah Staley is a 29 year old G3 now P3 status post spontaneous vaginal delivery @ 39.0 wks by 9 wk US inconsistent with LMP. Preg was complicated by h/o gHTN, 1st TM bleeding, UTI in 1st TM. The patient presented to labor and delivery on 06/02/2024 for a scheduled elective induction of labor. She was 4-5 cm upon admission. She was GBS negative. She was started on IV Pitocin for induction of labor. This was an elective delivery. The patient began diony regularly and received a laboring epidural. She changed to 8 cm dilation and did not make change for approximately 3 hours. The head was well applied to the cervix, so AROM was performed at 1409 on 06/02/2024. Clear fluid was noted. The patient then continued to make change and was complete by 1458 on 06/02/2024. Delivery: The patient began pushing at 1459 on 06/02/2024. The patient pushed well and the infant delivered in the OA position at 1503 on 06/02/2024. The infant had a nuchal cord x 2. This was reduced prior to delivery of the rest of the infant. The right shoulder was the anterior shoulder and it was delivered with steady pressure. The rest of the infant delivered without complication. The infant's mouth and nose were bulb suctioned by myself and the infant was crying immediately upon delivery. The patient was placed on the mother's chest where the nurses were waiting to care for him. The cord was clamped by myself after approximately 1 minute and cut by the infant's father. Cord blood was obtained. The cord was then drained of blood and traction was placed on the umbilical cord and the uterus was massaged. The placenta delivered at 1513 on 06/02/2024. The placenta was noted to be intact with a peripheral umbilical cord insertion site. The cervix was inspected and no lacerations were noted. The vaginal wall was inspected and a small abrasion on the right vaginal wall was noted. No suturing was needed. The patient's bleeding is small at this time. Currently both the mother and are doing well. History History History 3 Term 2 0 Miscarriages/Ectopic 0 Living Children 2 Past Pregnancies Del. Date GA/Weeks Outcome Route Wt Inf Gender Labor Lgth Comp. Anesthesia Location 09/29/17 38 live - full term Vaginal 8 lb 5 oz Male 24 hr [facility] 11/22/20 39 live - full term Vaginal 7 lb 13 oz Female 9 hrs [facility] 06/02/24 39 live - full term Vaginal 8 lb 8 oz Male 7 hrs [facility] Delivery Date: 09/29/17 Last Updated by: Brenden Grover MD Spontaneous labor at 38.1 wks Delivery Date: 11/22/20 Last Updated by: Brenden Grover MD Induced for gHTN without severe features, anemia, COVID Delivery Date: 06/02/24 Last Updated by: Brenden Grover MD Induction, no significant complications A&P Assessment and plan (1) Spontaneous vaginal delivery: Coding Level of Care Code Acute Code for Chg Fwd Diagnoses Spontaneous vaginal delivery O80
--- NOTE | 2024-06-02 18:00 | ANE.PACU2 ---
Inpatient post-anesthesia follow up: Airway intact: Yes Vital signs: Temperature 98.0 F Pulse Rate 76 Respiratory Rate 16 Blood Pressure 129/76 Pulse Oximetry 98 Oxygen Delivery Me thod Room Air Oxygen Flow Rate Fraction of Inspir ed Oxygen Hydration adequate: Yes Nausea and vomiting: No Pain level: 1 Mental status: Baseline Epidural Start/End: Epidural Start Date: 06/01/24 Epidural Start Time: 08:45 Epidural End Date: 06/02/24 Epidural End Time: 17:48
[2024-06-02] MEDS: docusate sodium 100 mg Capsule PO (22:00)
[2024-06-02] MEDS: ibuprofen 800 mg tablet PO (22:00)
[2024-06-03 01:00] VITALS: BP 117/75; PULSE 70; TEMP 36.6
[2024-06-03 03:57] LABS: Hematocrit 33.6 % (36-47); Mean Corpuscular Hemoglobin 30.4 pg (27-33); Mean Corpuscular Volume 92.1 fl (85-98); Mean Platelet Volume 11.9 fL (7.4-10.4); Platelet Count 197 10^3/cmm (157-399); Red Blood Count 3.65 10^6/uL (3.85-5.65); White Blood Count 17.36 10^3/uL (3.29-11.43)
[2024-06-03 04:00] VITALS: BP 112/66; PULSE 66; RESP 16; TEMP 36.6; TEMP 36.7; O2SAT 97
[2024-06-03] MEDS: HYDROcodone-acetaminophen 5-325 mg Tablet PO (05:57)
[2024-06-03] MEDS: PRENATAL VIT NO.130/IRON/FOLIC 1 EACH TABLET PO (08:35)
[2024-06-03] MEDS: ibuprofen 800 mg tablet PO ×3 (08:35→20:07)
[2024-06-03] MEDS: docusate sodium 100 mg Capsule PO ×2 (08:36→20:08)
[2024-06-03 10:00] VITALS: BP 121/76; PULSE 66; RESP 16; TEMP 36.5; O2SAT 98
--- NOTE | 2024-06-03 14:22 | PM.DCS ---
Discharge Providers Date of Admission: 06/02/24 07:00 Date of Discharge: June 03, 2024 Attending Provider at Admission: Brenden Grover MD Attending Provider at Discharge: Brenden Grover MD Primary Care Provider: Brenden Grover MD Diagnoses at Discharge Discharge Diagnosis (1) Spontaneous vaginal delivery: Status: Acute Other Information Additional DC diagnoses/information: 1. Intrauterine status post spontaneous vaginal delivery at 39.0 weeks gestation 2. History of gestational hypertension 3. First trimester bleeding 4. UTI in first trimester 5. Delivery of healthy male weighing 8 pounds 8 ounces with Apgars of 8 and 9 Reason for Visit Reason for Visit: induction of labor Brief History: Noah Staley is a 29 year old G3 now P3 status post spontaneous vaginal delivery @ 39.0 wks by 9 wk US inconsistent with LMP. Preg was complicated by h/o gHTN, 1st TM bleeding, UTI in 1st TM. The patient presented to labor and delivery on 06/02/2024 for a scheduled elective induction of labor. She was 4-5 cm upon admission. She was GBS negative. Hospital Course Hospital Course She was started on IV Pitocin for induction of labor. This was an elective delivery. The patient began diony regularly and received a laboring epidural. She changed to 8 cm dilation and did not make change for approximately 3 hours. The head was well applied to the cervix, so AROM was performed at 1409 on 06/02/2024. Clear fluid was noted. The patient then continued to make change and was complete by 1458 on 06/02/2024. The patient began pushing at 1459 on 06/02/2024. The patient pushed well and the infant delivered in the OA position at 1503 on 06/02/2024. The patient did not have any tears. Her bleeding was light afterwards. , the patient has done very well. She is ambulating, voiding, passing gas and tolerating food by mouth. She is showing no signs of complications. Routine discharge instructions were discussed. All questions were answered. The patient is in agreement with the current plan of care. Physical Exam Narrative: General: Alert and oriented x3 Cardiac: Regular rate and rhythm without murmurs Lungs: Clear to auscultation bilaterally without wheezes, crackles or rhonchi Abdomen: Soft, mild tenderness over uterus. The uterus is firm and 2 cm below the umbilicus. Extremities: Trace edema in the bilateral lower extremities Urinary Catheter Management: Glynn: Cath Placed During This Visit: yes, but has since been removed by the nurse Reason for Continuing Indwelling Catheter: Other Urinary Catheter Date of Insertion: 06/02/24 Urinary Catheter Time of Insertion: 10:28 Date Urinary Catheter Removed: 06/02/24 Time Urinary Catheter Discontinued: 14:55 Discharge Data Studies Completed and Pending Laboratory Results WBC 17.36 10^3/uL (3.29-11.43) H 06/03/24 03:15 RBC 3.65 10^6/uL (3.85-5.65) L 06/03/24 03:15 Hgb 11.10 g/dL (11.27-16.99) L 06/03/24 03:15 Hct 33.6 % (36-47) L 06/03/24 03:15 MCV 92.1 fl (85-98) 06/03/24 03:15 MCH 30.4 pg (27-33) 06/03/24 03:15 MCHC 33.0 g/dL (30-55) 06/03/24 03:15 RDW 12.0 % (12.1-15.1) L 06/03/24 03:15 Plt Count 197 10^3/cmm (157-399) 06/03/24 03:15 MPV 11.9 fL (7.4-10.4) H 06/03/24 03:15 Neut % (Auto) 75.2 % 06/02/24 07:29 Lymph % (Auto) 15.8 % 06/02/24 07:29 [place] % (Auto) 7.7 % 06/02/24 07:29 Eos % (Auto) 0.3 % 06/02/24 07:29 Baso % (Auto) 0.2 % 06/02/24 07:29 Neut # (Auto) 8.94 10^3/uL (1.8-7.7) H 06/02/24 07:29 Lymph # (Auto) 1.9 10^3/uL (0.8-4.8) 06/02/24 07:29 [place] # (Auto) 0.9 10^3/uL (0.2-0.9) 06/02/24 07:29 Eos # (Auto) 0.0 10^3/uL (0.0-0.8) 06/02/24 07:29 Baso # (Auto) 0.0 10^3/uL (0.0-0.1) 06/02/24 07:29 Nucleated RBC % (auto) 0 % 06/02/24 07:29 Nucleated RBCs # 0.0 /100WBC 06/02/24 07:29 Blood Type O Positive 06/02/24 07:29 Rho(D) Type Rh positive 06/02/24 07:29 Antibody Screen Negative 06/02/24 07:29 Vitals Last Vital Signs Temp 97.7 F 06/03/24 10:00 Pulse 66 06/03/24 10:00 Resp 16 06/03/24 10:00 BP 121/76 06/03/24 10:00 Pulse Ox 98 06/03/24 10:00 O2 Del Method Room Air 06/03/24 10:00 Discharge Plan Discharge Patient Disposition: Home Condition: Good Prescriptions: New ibuprofen 800 mg Tablet 800 mg PO TID Qty: 30 0RF ferrous sulfate 325 mg (65 mg iron) tablet 325 mg PO DAILY Qty: 30 0RF Continued One-A-Day -1 27 mg iron- 800 mcg-235 mg capsule PO Referrals: Brenden Grover MD [Primary Care Provider] - 6 Weeks Discharge Diet: Regular Discharge Activity: Increase activity as tolerated Patient Instructions: Depression (DC), Preeclampsia and Eclampsia After Delivery (GEN), OB Discharge Report, OB Food/Drug Interaction Guide, Opioid Safety, OB [facility], OB Vaginal Deliveries, Abnormal Bleeding Activity Restrictions/Additional Instructions: Nothing per vagina for 6 weeks. Showers are recommended instead of baths for the first 6 weeks. Discharge Attestations Time Spent in Discharge Care*: greater than 30 min Quality Metrics Clinical Quality Measures [ No reported AMI, CVA or VTE this stay] Coding Level of Care Code Acute Code for Chg Fwd Diagnoses Spontaneous vaginal delivery O80
[2024-06-03 16:00] VITALS: BP 126/68; PULSE 70; RESP 14; TEMP 36.8; O2SAT 98
--- NOTE | 2024-06-03 19:03 | PC.NURSE ---
Patient in nursery at [facility].
[2024-06-03 20:15] VITALS: BP 129/76; PULSE 76; RESP 76; TEMP 36.7; O2SAT 98
[2024-06-03 20:19] VITALS: BP 129/76; PULSE 76; RESP 16; TEMP 36.7; O2SAT 98
== END 2024-06-03 20:15 | disposition home or self-care (01) | DRG 807 ==
LOC: OPOB 15:25 → OBGYN 15:25
PROVIDERS: Admitting Provider Family Medicine; PCP Family Medicine; Visit Provider Family Medicine
DX: O13.4 Gestational [pregnancy-induced] hypertension without significant proteinuria, complicating childbirth (principal); Z37.0 Single live birth; Z3A.39 39 weeks gestation of pregnancy; O69.81X0 Labor and delivery complicated by cord around neck, without compression, not applicable or unspecified
CPT/HCPCS: 36415; 51702; 59025; 59409; 85025; 85027; 86850; 86900; 99211; J2590; J2795; J7120; J7121